=== PATIENT | male | born 1975 | race Caucasian/White ===

== ENCOUNTER → 2025-04-17 13:06 | Outpatient (BNVA) | payer OTHER, SELFPAY | PROVIDERS: Visit Provider Physician Assistant | DX: S61.212A Laceration without foreign body of right middle finger without damage to nail, initial encounter (principal); W26.9XXA Contact with unspecified sharp object(s), initial encounter; Z23 Encounter for immunization | CPT/HCPCS: 12001; 90714; 99204 ==

== ENCOUNTER → 2025-04-22 13:17 | Outpatient (BNVA) | payer OTHER, SELFPAY | PROVIDERS: Visit Provider Physician Assistant Medical | DX: S61.212A Laceration without foreign body of right middle finger without damage to nail, initial encounter (principal); W26.9XXA Contact with unspecified sharp object(s), initial encounter | CPT/HCPCS: 99213 ==

== ENCOUNTER → 2025-04-25 12:15 | Outpatient (BNVA) | payer OTHER, SELFPAY | PROVIDERS: Visit Provider Physician Assistant | DX: Z48.02 Encounter for removal of sutures (principal); S61.212A Laceration without foreign body of right middle finger without damage to nail, initial encounter; W26.9XXA Contact with unspecified sharp object(s), initial encounter; Z02.79 Encounter for issue of other medical certificate | CPT/HCPCS: 99213 ==